=== PATIENT | male | born 1930 | race Caucasian/White ===

== ENCOUNTER 2016-11-26 21:42 | Emergency (ER) | payer MEDICARE, BC ==
[2016-11-26 22:12] VITALS: BP 122/65
--- NOTE | 2016-11-26 23:33 | ED ---
Lalito Francisco Rebecca, scribed for Ron Rubio MD on 11/26/16 at 2238 . GI/ HPI - HPI Summary HPI Summary: Pt is an 86 y/o M who presents to ED c/o his catheter not draining. Pt had the laura put in place 4 weeks ago, which has been working well until the current issue. His laura suddenly stopped draining today at 1700 and has begun leaking from the top of the tube. Sx aggravated and alleviated by nothing. Pt denies any other symptoms including any pain. - History of Current Complaint Chief Complaint: EDUrogenitalProblems Time Seen by Provider: 11/26/16 22:29 Stated Complaint: CATHETER CHANGED Hx Obtained From: Patient, Family/Nurse Specialist - Onset/Duration: Started Hours Ago, Still Present Timing: Constant Pain Intensity: 0 Associated Signs and Symptoms: Positive: Other: - Catheter stopped draining Aggravating Factor(s): Nothing Alleviating Factor(s): Nothing - Additional Pertinent History Primary Care Physician: [id number] - Allergy/Home Medications Allergies/Adverse Reactions: Allergies Allergy/AdvReac Type Severity Reaction Status Date / Time No Known Allergies Allergy Verified 10/11/16 10:29 PMH/Surg Hx/FS Hx/Imm Hx Endocrine/Hematology History: Denies: Hx Diabetes, Hx Unexplained Bleeding Cardiovascular History: Reports: Hx Coronary Artery Disease, Hx Hypercholesterolemia Denies: Hx Congestive Heart Failure, Hx Hypertension, Hx Pacemaker/ICD, Other Cardiovascular Problems/Disorders Respiratory History: Denies: Hx Chronic Obstructive Pulmonary Disease (COPD), Other Respiratory Problems/Disorders GI History: Reports: Hx Gall Bladder Disease, Hx Gastroesophageal Reflux Disease , Hx Hiatal Hernia Denies: Other GI Disorders History: Reports: Hx Kidney Stones - RIGHT URETERAL STENT 10/2013, Other Problems/Disorders - TURP, PROSTATE CA, HEMATURIA, BLADDER LESION Denies: Hx Dialysis, Hx Renal Disease Musculoskeletal History: Reports: Hx Orthopedic Injury - 01/05/14 RIGHT HIP FRACTURE/OUTPT TREATMENT Denies: Hx Back Problems Sensory History: Reports: Hx Cataracts, Hx Contacts or Glasses, Hx Vision Problem, Hx Hearing Aid, Hx Hearing Problem Opthamlomology History: Reports: Hx Cataracts, Hx Contacts or Glasses, Hx Vision Problem Neurological History: Denies: Hx Dementia, Hx Seizures, Other Neuro Impairments/Disorders Psychiatric History: Denies: Hx Panic Disorder - Cancer History Cancer Type, Location and Year: PROSTATE CANCER x ~7 years - Surgical History Surgery Procedure, Year, and Place: Appendectomy 1943, Cholecystectomy 2009. kidney stone removal. TURP WITH RIGHT URETERAL STENT 10/2013 @ [facility] [place]. CARDIAC STENTS, 2001(cypher drug-eluting stent). cardiac stents 08/2016 (synergy drug- eluting stents X3, conditional 1.5 &3, scan in normal mode) Hx Anesthesia Reactions: No Infectious Disease History: No Infectious Disease History: Denies: Hx Clostridium Difficile, Hx Hepatitis, Hx Human Immunodeficiency Virus (HIV), Hx of Known/Suspected MRSA, Traveled Outside the [place] in Last 30 Days - Family History Known Family History: Positive: Cardiac Disease, Hypertension - Social History Alcohol Use: Occasionally Alcohol Amount: 2-3 wine/week max Substance Use Type: Reports: None Smoking Status (MU): Former Smoker Type: Cigarettes Have You Smoked in the Last Year: No Review of Systems Positive: other - Catheter stopped draining Negative: Arthralgia All Other Systems Reviewed And Are Negative: Yes Physical Exam Triage Information Reviewed: Yes Vital Signs On Initial Exam: Initial Vitals Temp Pulse Resp BP Pulse Ox 97.9 F 86 16 122/65 100 11/26/16 22:05 11/26/16 22:05 11/26/16 22:05 11/26/16 22:05 11/26/16 22:05 Vital Signs Reviewed: Yes Appearance: Positive: Well-Appearing, No Pain Distress Skin: Positive: Warm, Skin Color Reflects Adequate Perfusion, Dry Eyes: Positive: EOMI, SELINA Neck: Positive: Supple, Nontender Respiratory/Lung Sounds: Positive: Clear to Auscultation, Breath Sounds Present Cardiovascular: Positive: RRR, Pulses are Symmetrical in both Upper and Lower Extremities Abdomen Description: Positive: Soft. Negative: Nontender - Tenderness in the suprapubic region Bowel Sounds: Positive: Present Musculoskeletal: Positive: Normal, Strength/ROM Intact Neurological: Positive: Normal, Sensory/Motor Intact, Alert, Oriented to Person Place, Time Psychiatric: Positive: Affect/Mood Appropriate Diagnostics - Vital Signs Vital Signs Temp Pulse Resp BP Pulse Ox 11/26/16 22:05 97.9 F 86 16 122/65 100 - Laboratory Lab Statement: Any lab studies that have been ordered have been reviewed, and results considered in the medical decision making process. GIGU Course/Dx - Course Assessment/Plan: LAURA REPLACED WITH A [address] [place]. WELL IN ED. DISCHARGE HOME STABLE. - Diagnoses Provider Diagnoses: Urinary catheter (Laura) change required Discharge - Discharge Plan Condition: Stable Disposition: HOME Patient Education Materials: Laura Catheter Placement and Care (ED) Referrals: [facility] [Provider Group] Bishnu Bonner MD [Primary Care Provider] - Additional Instructions: RETURN TO THE EMERGENCY DEPARTMENT FOR ANY WORSENING OF YOUR CONDITION OR QUESTIONS OR CONCERNS. The documentation as recorded by the Lalito chavez Rebecca accurately reflects the service I personally performed and the decisions made by me, Ron Rubio MD.
== END 2016-11-26 23:35 | disposition home or self-care (01) ==
LOC: ED 21:42
DX: Z46.6 Encounter for fitting and adjustment of urinary device (principal); Z87.891 Personal history of nicotine dependence
CPT/HCPCS: 99281

== ENCOUNTER 2016-12-11 10:44 | Emergency (ER) | payer MEDICARE, BC ==
[2016-12-11] MEDS ORDERED: Acetaminophen TAB* 325 MG PO ONE (12:24)
[2016-12-11] MEDS ORDERED: NS 0.9% 1000 ML* 1,000 ML IV SCH (12:30)
[2016-12-11 13:11] LABS: Hematocrit 26 % (42-52); Hemoglobin 8.2 g/dl (14.0-18.0); Mean Corpuscular HGB Conc 32 g/dl (31-36); Mean Corpuscular Hemoglobin 27 pg (27-31); Mean Corpuscular Volume 84 fL (80-94); Mean Platelet Volume 10 um3 (7.4-10.4); Red Blood Count 3.07 10^6/ul (4.0-5.4); Red Cell Distribution Width 21 % (10.5-15); White Blood Count 8.6 10^3/ul (3.5-10.8)
[2016-12-11 13:33] LABS: Albumin 3.4 g/dL (3.2-5.2); BUN/Creatinine Ratio 23.2 (8-20); C Reactive Protein 102.73 mg/L (< 5.00); Calcium 9.2 mg/dL (8.6-10.3); EGFR African American 114.8 (>60); EGFR Non-African American 89.3 (>60); Potassium 3.4 mmol/L (3.5-5.0); Total Bilirubin 1.2 mg/dL (0.2-1.0); Total Protein 6.4 g/dL (6.4-8.9)
--- NOTE | 2016-12-11 13:58 | RAD ---
INDICATION: Low back pain, metastatic prostate carcinoma. COMPARISON: Comparison is made with a prior CT of the abdomen and pelvis from October 16, 2016. TECHNIQUE: A CT scan of the abdomen and pelvis was performed without intravenous or oral contrast. Contiguous axial sections were obtained from the lung bases through the symphysis pubis. Images were reconstructed in the coronal and sagittal planes. FINDINGS: The lung bases are clear. No pleural effusion is present. The liver and spleen are normal in size without significant focal abnormality on this noncontrast study. The patient is status post cholecystectomy. The pancreas appears to be within normal limits. The kidneys and adrenal glands appear normal in size. There are small calcifications in the lower pole of the left kidney measuring 2 to 4 mm in size most consistent with nonobstructing renal calculi. No hydronephrosis is present. The abdominal aorta is ectatic with moderate to severe calcific plaque present. There are enlarged lymph nodes present in the right external iliac chain measuring up to 1.8 cm in transverse dimension which are unchanged from the prior study. The stomach, small and large bowel appear nondistended. The appendix is within normal limits. There is no evidence for colitis or diverticulitis. No free intraperitoneal air or fluid is seen. There are mixed sclerotic and lytic lesions present within the pubic symphysis on the left side and within the right inferior pubic ramus and right ischium. There are pathologic fractures of the right inferior pubic ramus and right ischium which are unchanged. There is also a lytic lesion in the posterior aspect of the right acetabulum. These findings appear grossly unchanged. IMPRESSION: 1. ENLARGED RIGHT EXTERNAL ILIAC CHAIN LYMPH NODES, UNCHANGED. 2. MULTIPLE LYTIC OSSEOUS PELVIC LESIONS CONSISTENT WITH METASTATIC DISEASE AND PATHOLOGIC FRACTURES OF THE RIGHT INFERIOR PUBIC RAMUS AND RIGHT ISCHIUM, UNCHANGED. 3. SMALL NONOBSTRUCTING LEFT RENAL CALCULI. 4. STATUS POST CHOLECYSTECTOMY.
--- NOTE | 2016-12-11 14:14 | RAD ---
INDICATION: Low back pain. COMPARISON: Comparison is made with a prior MRI of the lumbar spine from July 07, 2013. TECHNIQUE: Contiguous axial sections were obtained beginning above the T12 vertebra and continuing through the L5-S1 disc space. Images were reconstructed in the sagittal and coronal planes. FINDINGS: The vertebra are in normal alignment. There is a lytic lesion within the L5 vertebral body with an associated mild pathologic compression fracture of the superior endplate of the vertebral body. There is extension of tumor into the epidural space in the anterior spinal canal causing mild to moderate spinal canal narrowing. At the T12-L1 level there is posterior endplate spurring associated with a mild broad-based disc bulge and mild hypertrophic changes within the facet joints. There is mild spinal canal narrowing and mild bilateral neural foraminal narrowing. At the L1-L2 level there is posterior endplate spurring associated with a mild broad-based disc bulge and mild hypertrophic changes within the facet joints. There is mild spinal canal narrowing and moderate bilateral neural foraminal narrowing. At the L2-L3 level there is posterior endplate spurring associated with a mild broad-based disc bulge which causes mild to moderate spinal canal narrowing. There are mild hypertrophic changes within the facet joints and mild bilateral neural foraminal narrowing. At the L3-L4 level there is a mild broad-based disc bulge associated with posterior endplate spurring and moderate hypertrophic changes within the facet joints. These findings give rise to moderate spinal canal narrowing and mild to moderate bilateral neural foraminal narrowing. At the L4-L5 level the patient is status post left hemilaminectomy. There is posterior endplate spurring associated with a moderate broad-based disc bulge. There is moderate spinal canal narrowing and moderate bilateral neural foraminal narrowing. At the L5-S1 level there are [id number] endplate hypertrophic changes associated with a mild broad-based disc bulge and mild hypertrophic changes within the facet joints. There is mild spinal canal narrowing and moderate bilateral neural foraminal narrowing. IMPRESSION: 1. THERE IS A LYTIC LESION WITHIN THE L5 VERTEBRAL BODY WITH ASSOCIATED MILD PATHOLOGIC COMPRESSION FRACTURE OF THE SUPERIOR ENDPLATE. THERE IS EXTENSION OF TUMOR INTO THE EPIDURAL SPACE IN THE ANTERIOR SPINAL CANAL CAUSING MILD TO MODERATE SPINAL CANAL NARROWING. THIS COULD BE BETTER EVALUATED WITH AN MRI OF THE LUMBAR SPINE WITH CONTRAST. 2. MODERATE LUMBAR SPONDYLITIC CHANGES GIVING RISE TO MILD TO MODERATE SPINAL CANAL NARROWING AT MULTIPLE LEVELS.
[2016-12-11 15:26] LABS: Budding Yeast Present (Absent); Urine Bacteria Absent (Absent); Urine Bilirubin Negative (Negative); Urine Glucose Negative (Negative); Urine Nitrite Negative (Negative)
--- NOTE | 2016-12-11 16:03 | ED ---
Rashad Francisco Matthew, scribed for Ron Rubio MD on 12/11/16 at 1232 . Back Pain - HPI Summary HPI Summary: An 86 y/o male presents to the ED by EMS with sudden mid lumbar back pain since 12/07/15. The pain is rated 10/10 in severity, and the pain on one occasion radiated down the patient's right leg. The pain worsens with movement. The patient presented to the ED today, because he was unable to get out of bed this morning. He has a Hx of chronic back pain. He also has a Hx of pneumonia, where he was hospitalized from before till after . He also has bladder CA, which has become metastatic. He currently denies fever, LE weakness , and abdominal pain. 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 - History of Current Complaint Chief Complaint: EDBackInjuryPain Stated Complaint: BACK PAIN Time Seen by Provider: 12/11/16 12:13 Hx Obtained From: Patient, Family/Chaplain Resident - Onset/Duration: Sudden Onset, Lasting Days, Still Present Onset/Duration: Started Days Ago, Atraumatic, Still Present Timing: Constant Back Pain Location: Is Discrete @ - mid lumbar spine Severity Initially: Moderate Severity Currently: Moderate Aggravating Symptom(s): Movement Alleviating Symptom(s): Nothing Associated Signs And Symptoms: Positive: Negative. Negative: Weakness, Numbness , Tingling, Abdominal Pain - Allergies/Home Medications Allergies/Adverse Reactions: Allergies Allergy/AdvReac Type Severity Reaction Status Date / Time No Known Allergies Allergy Verified 10/11/16 10:29 Home Medications: Home Medications Amoxicillin/Clavulanate TAB* [Augmentin TAB 500 mg*] 500 mg PO TID 12/11/16 [ History Confirmed 12/11/16] Potassium Chlor TAB* [Potassium Chlor TAB 20 MEQ*] 20 meq PO DAILY 12/11/16 [ History Confirmed 12/11/16] Ramipril CAP* [Altace CAP*] 10 mg PO DAILY 12/11/16 [History Confirmed 12/11/16] predniSONE TAB* [Deltasone TAB*] 5 mg PO BID 12/11/16 [History Confirmed ] PMH/Surg Hx/FS Hx/Imm Hx Endocrine/Hematology History: Denies: Hx Diabetes, Hx Unexplained Bleeding Cardiovascular History: Reports: Hx Coronary Artery Disease, Hx Hypercholesterolemia Denies: Hx Congestive Heart Failure, Hx Hypertension, Hx Pacemaker/ICD, Other Cardiovascular Problems/Disorders Respiratory History: Denies: Hx Chronic Obstructive Pulmonary Disease (COPD), Other Respiratory Problems/Disorders GI History: Reports: Hx Gall Bladder Disease, Hx Gastroesophageal Reflux Disease , Hx Hiatal Hernia Denies: Other GI Disorders History: Reports: Hx Kidney Stones - RIGHT URETERAL STENT 10/2013, Other Problems/Disorders - TURP, PROSTATE CA, HEMATURIA, BLADDER LESION Denies: Hx Dialysis, Hx Renal Disease Musculoskeletal History: Reports: Hx Orthopedic Injury - 01/05/14 RIGHT HIP FRACTURE/OUTPT TREATMENT Denies: Hx Back Problems Sensory History: Reports: Hx Cataracts, Hx Contacts or Glasses, Hx Vision Problem, Hx Hearing Aid, Hx Hearing Problem Opthamlomology History: Reports: Hx Cataracts, Hx Contacts or Glasses, Hx Vision Problem Neurological History: Denies: Hx Dementia, Hx Seizures, Other Neuro Impairments/Disorders Psychiatric History: Denies: Hx Panic Disorder - Cancer History Cancer Type, Location and Year: PROSTATE CANCER x ~7 years - Surgical History Surgery Procedure, Year, and Place: Appendectomy 194, Cholecystectomy 2009. kidney stone removal. TURP WITH RIGHT URETERAL STENT 10/2013 @ [facility] – [place]. CARDIAC STENTS, 2001(cypher drug-eluting stent). cardiac stents 08/2016 (synergy drug- eluting stents X3, conditional 1.5 &3, scan in normal mode) Hx Anesthesia Reactions: No Infectious Disease History: No Infectious Disease History: Denies: Hx Clostridium Difficile, Hx Hepatitis, Hx Human Immunodeficiency Virus (HIV), Hx of Known/Suspected MRSA, Traveled Outside the [place] in Last 30 Days - Family History Known Family History: Positive: Cardiac Disease, Hypertension - Social History Alcohol Use: Occasionally Alcohol Amount: 2-3 wine/week max Substance Use Type: Reports: None Smoking Status (MU): Former Smoker Type: Cigarettes Have You Smoked in the Last Year: No Review of Systems Constitutional: Negative Eyes: Negative ENT: Negative Cardiovascular: Negative Respiratory: Negative Gastrointestinal: Negative Genitourinary: Negative Positive: Myalgia - mid lumbar back pain Skin: Negative Neurological: Negative Psychological: Normal All Other Systems Reviewed And Are Negative: Yes Physical Exam Triage Information Reviewed: Yes Vital Signs On Initial Exam: Initial Vitals Temp Pulse Resp BP Pulse Ox 97.8 F 75 16 135/64 98 12/11/16 11:00 12/11/16 11:00 12/11/16 11:00 12/11/16 11:00 12/11/16 11:00 Vital Signs Reviewed: Yes Appearance: Positive: No Pain Distress Skin: Positive: Warm, Skin Color Reflects Adequate Perfusion, Dry Head/Face: Positive: Normal Head/Face Inspection Eyes: Positive: EOMI, SELINA ENT: Positive: Normal ENT inspection Neck: Positive: Supple, Nontender Cardiovascular: Positive: RRR Abdomen Description: Positive: Nontender, Soft Bowel Sounds: Positive: Present Musculoskeletal: Positive: Strength/ROM Intact, Other - mid lumbar spinal tenderness Neurological: Positive: Sensory/Motor Intact, Alert, Oriented to Person Place, Time Psychiatric: Positive: Normal, Affect/Mood Appropriate Diagnostics - Vital Signs Vital Signs Temp Pulse Resp BP Pulse Ox 12/11/16 12:00 79 128/59 99 12/11/16 11:35 74 100 12/11/16 11:00 97.8 F 75 16 135/64 98 - Laboratory Lab Results: Lab Results 12/11/16 12/11/16 12/11/16 Range/Units 13:00 13:00 13:00 WBC 8.6 (3.5-10.8) 10^3/ul RBC 3.07 L (4.0-5.4) 10^6/ul Hgb 8.2 L (14.0-18.0) g/dl Hct 26 L (42-52) % MCV 84 (80-94) fL MCH 27 (27-31) pg MCHC 32 (31-36) g/dl RDW 21 H (10.5-15) % Plt Count 225 (150-450) 10^3/ul MPV 10 (7.4-10.4) um3 Neut % (Auto) 84.2 H (38-83) % Lymph % (Auto) 7.0 L (25-47) % Bingham % (Auto) 7.6 (1-9) % Eos % (Auto) 0.8 (0-6) % Baso % (Auto) 0.4 (0-2) % Absolute Neuts (auto) 7.2 (1.5-7.7) 10^3/ul Absolute Lymphs (auto) 0.6 L (1.0-4.8) 10^3/ul Absolute Monos (auto) 0.6 (0-0.8) 10^3/ul Absolute Eos (auto) 0.1 (0-0.6) 10^3/ul Absolute Basos (auto) 0 (0-0.2) 10^3/ul Absolute Nucleated RBC 0 10^3/ul Nucleated RBC % 0 INR (Anticoag Therapy) 1.17 H (0.89-1.11) APTT 30.5 (26.0-36.3) seconds Sodium 135 (133-145) mmol/L Potassium 3.4 L (3.5-5.0) mmol/L Chloride 103 (101-111) mmol/L Carbon Dioxide 22 (22-32) mmol/L Anion Gap 10 (2-11) mmol/L BUN 19 (6-24) mg/dL Creatinine 0.82 (0.67-1.17) mg/dL Est GFR ( Amer) 114.8 (>60) Est GFR (Non-Af Amer) 89.3 (>60) BUN/Creatinine Ratio 23.2 H (8-20) Glucose 92 (70-100) mg/dL Lactic Acid (0.5-2.0) mmol/L Calcium 9.2 (8.6-10.3) mg/dL Total Bilirubin 1.20 H (0.2-1.0) mg/dL AST 19 (13-39) U/L ALT 14 (7-52) U/L Alkaline Phosphatase 112 H (34-104) U/L C-Reactive Protein 102.73 H (< 5.00) mg/L Total Protein 6.4 (6.4-8.9) g/dL Albumin 3.4 (3.2-5.2) g/dL Globulin 3.0 (2-4) g/dL Albumin/Globulin Ratio 1.1 (1-3) Lipase 12 (11.0-82.0) U/L Urine Color Urine Appearance Urine pH (5-9) Ur Specific Carroll (1.010-1.030) Urine Protein (Negative) Urine Ketones (Negative) Urine Blood (Negative) Urine Nitrate (Negative) Urine Bilirubin (Negative) Urine Urobilinogen (Negative) Ur Leukocyte Esterase (Negative) Urine WBC (Auto) (Absent) Urine RBC (Auto) (Absent) Ur Squamous Epith Cells (Absent) Urine Bacteria (Absent) Urine Yeast (Absent) Urine Glucose (Negative) 12/11/16 12/11/16 Range/Units 13:00 15:07 WBC (3.5-10.8) 10^3/ul RBC (4.0-5.4) 10^6/ul Hgb (14.0-18.0) g/dl Hct (42-52) % MCV (80-94) fL MCH (27-31) pg MCHC (31-36) g/dl RDW (10.5-15) % Plt Count (150-450) 10^3/ul MPV (7.4-10.4) um3 Neut % (Auto) (38-83) % Lymph % (Auto) (25-47) % Bingham % (Auto) (1-9) % Eos % (Auto) (0-6) % Baso % (Auto) (0-2) % Absolute Neuts (auto) (1.5-7.7) 10^3/ul Absolute Lymphs (auto) (1.0-4.8) 10^3/ul Absolute Monos (auto) (0-0.8) 10^3/ul Absolute Eos (auto) (0-0.6) 10^3/ul Absolute Basos (auto) (0-0.2) 10^3/ul Absolute Nucleated RBC 10^3/ul Nucleated RBC % INR (Anticoag Therapy) (0.89-1.11) APTT (26.0-36.3) seconds Sodium (133-145) mmol/L Potassium (3.5-5.0) mmol/L Chloride (101-111) mmol/L Carbon Dioxide (22-32) mmol/L Anion Gap (2-11) mmol/L BUN (6-24) mg/dL Creatinine (0.67-1.17) mg/dL Est GFR ( Amer) (>60) Est GFR (Non-Af Amer) (>60) BUN/Creatinine Ratio (8-20) Glucose (70-100) mg/dL Lactic Acid 1.3 (0.5-2.0) mmol/L Calcium (8.6-10.3) mg/dL Total Bilirubin (0.2-1.0) mg/dL AST (13-39) U/L ALT (7-52) U/L Alkaline Phosphatase (34-104) U/L C-Reactive Protein (< 5.00) mg/L Total Protein (6.4-8.9) g/dL Albumin (3.2-5.2) g/dL Globulin (2-4) g/dL Albumin/Globulin Ratio (1-3) Lipase (11.0-82.0) U/L Urine Color Yellow Urine Appearance Cloudy Urine pH 6.0 (5-9) Ur Specific Carroll 1.012 (1.010-1.030) Urine Protein Negative (Negative) Urine Ketones 1+ H (Negative) Urine Blood Negative (Negative) Urine Nitrate Negative (Negative) Urine Bilirubin Negative (Negative) Urine Urobilinogen Negative (Negative) Ur Leukocyte Esterase Trace H (Negative) Urine WBC (Auto) 2+(11-20/hpf) H (Absent) Urine RBC (Auto) 3+(>10/hpf) H (Absent) Ur Squamous Epith Cells Present H (Absent) Urine Bacteria Absent (Absent) Urine Yeast Present H (Absent) Urine Glucose Negative (Negative) Result Diagrams: 12/11/16 13:00 12/11/16 13:00 Lab Statement: Any lab studies that have been ordered have been reviewed, and results considered in the medical decision making process. - CT A/P CT Interpretation: Positive (See Comments) - IMPRESSION: 1. ENLARGED RIGHT EXTERNAL ILIAC CHAIN LYMPH NODES, UNCHANGED. 2. MULTIPLE LYTIC OSSEOUS PELVIC LESIONS CONSISTENT WITH METASTATIC DISEASE AND PATHOLOGIC FRACTURES OF THE RIGHT INFERIOR PUBIC RAMUS AND RIGHT ISCHIUM, UNCHANGED. 3. SMALL NONOBSTRUCTING LEFT RENAL CALCULI. 4. STATUS POST CHOLECYSTECTOMY. CT Interpretation Completed By: Radiologist Lumbar CT CT Interpretation: Positive (See Comments) - IMPRESSION: 1. THERE IS A LYTIC LESION WITHIN THE L5 VERTEBRAL BODY WITH ASSOCIATED MILD PATHOLOGIC COMPRESSION FRACTURE OF THE SUPERIOR ENDPLATE. THERE IS EXTENSION OF TUMOR INTO THE EPIDURAL SPACE IN THE ANTERIOR SPINAL CANAL CAUSING MILD TO MODERATE SPINAL CANAL NARROWING. THIS COULD BE BETTER EVALUATED WITH AN MRI OF THE LUMBAR SPINE WITH CONTRAST. 2. MODERATE LUMBAR SPONDYLITIC CHANGES GIVING RISE TO MILD TO MODERATE SPINAL CANAL NARROWING AT MULTIPLE LEVELS. CT Interpretation Completed By: Radiologist Back Pain Course/Dx - Course Assessment/Plan: DISCUSSED WITH DR CHARLES. DISCUSSED RESULTS WITH PATIENT/ . AMBULATED IN ED. DISCHARGE HOME STABLE. F/U TOMORROW WITH DR MILAN. - Diagnoses Provider Diagnoses: Low back pain, Lumbar compression fracture, Prostate cancer metastatic to bone - Provider Notifications Discussed Care of Patient With: Dr. Charles (Oncology) at 15:52 -- Notified of patient's history and will admit the patinet. Discharge - Discharge Plan Condition: Stable Disposition: HOME Patient Education Materials: Acute Low Back Pain (ED), Vertebral Compression Fracture (ED) Referrals: Bishnu Bonner MD [Primary Care Provider] - Additional Instructions: FOLLOW UP WITH DR MILAN TOMORROW, 12/12/16 SCHEDULED. TAKE TYLENOL DIRECTED FOR PAIN. RETURN TO THE EMERGENCY DEPARTMENT FOR ANY WORSENING OF YOUR CONDITION; PAIN, WEAKNESS, NUMBNESS, DIFFICULTY CONTROLLING YOUR BOWEL OR BLADDER OR QUESTIONS OR CONCERNS. The documentation as recorded by the Rashad chavez Matthew accurately reflects the service I personally performed and the decisions made by me, Ron Rubio MD.
[2016-12-11 16:35] VITALS: BP 119/71
--- NOTE | 2016-12-16 18:56 | PN ---
Progress Note - Progress Note Note: patient called. fluconozole 150 qd for 2 days sent to pharmacy patient to case picker tomorrow. nothing further
== END 2016-12-11 16:34 | disposition home or self-care (01) ==
LOC: ED 10:44
DX: M54.5 Low back pain (principal); M48.56XA Collapsed vertebra, not elsewhere classified, lumbar region, initial encounter for fracture; C67.9 Malignant neoplasm of bladder, unspecified; C79.51 Secondary malignant neoplasm of bone; I25.10 Atherosclerotic heart disease of native coronary artery without angina pectoris; E78.00 Pure hypercholesterolemia, unspecified; N20.0 Calculus of kidney; Z79.899 Other long term (current) drug therapy
CPT/HCPCS: 36415; 72131; 74176; 80053; 81003; 81015; 83605; 83690; 85025; 85610; 85730; 86140; 87086; 87106; 96360; 99282; A9270-GY

== ENCOUNTER 2016-12-22 12:31 | Emergency (ER) | payer MEDICARE, BC ==
[2016-12-22 12:44] VITALS: BP 97/49
[2016-12-22] MEDS ORDERED: NS 0.9% 1000 ML* 1,000 ML IV ONE (13:00)
[2016-12-22] MEDS ORDERED: Aspirin Low Dose CHEW TAB* 81 MG PO ONE (13:00)
--- NOTE | 2016-12-22 13:46 | UC ---
Syncope/New Syncope HPI - HPI Summary HPI Summary: PT WAS TRANSFERED TO URGENT CARE FROM THE MRI. WHILE UNDER GOING THE STUDY PT FELT A LITTLE OFF. WHEN HE EMERGED FROM THE MRI, HE WAS FOUND TO BE PALE. HE EYES ROLLED BACK AND HE LOST CONSCIOUSNESS. HE WAS FOUND TO HAVE IRREGULAR RHYTHM AND BRADYCARDIA HE ALSO EXPERIENCED N/V. AT TIME OF ENCOUNTER, PT DENIES , CP, SOB, DIZZINESS, CONFUSION, NAUSEA, DE DIOS, ABD PAIN, LEFT NECK/JAW/ARM PAIN. 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 Negative: Chest Pain, Diarrhea, Diaphoresis, Headache, Numbness, Pain, Shortness Of Breath - Allergies/Home Medications Allergies/Adverse Reactions: Allergies Allergy/AdvReac Type Severity Reaction Status Date / Time No Known Allergies Allergy Verified 12/22/16 12:51 PMH/Surg Hx/FS Hx/Imm Hx Endocrine History Of: Denies: Diabetes Cardiovascular History Of: Reports: Cardiac Disorders - CAD, x5 stents Denies: Hypertension, Pacemaker/ICD, Congestive Heart Failure Respiratory History Of: Denies: COPD GI/ History Of: Reports: Gall Bladder Disease, Kidney Stones - RIGHT URETERAL STENT 10/2013, Renal Disease Neurological History Of: Denies: Dementia, Seizures - Surgical History Surgical History: Yes Surgery Procedure, Year, and Place: Appendectomy 194, Cholecystectomy 2009. kidney stone removal. TURP WITH RIGHT URETERAL STENT 10/2013 @ [facility] [place]. CARDIAC STENTS, 2001(cypher drug-eluting stent). cardiac stents 08/2016 (synergy drug- eluting stents X3, conditional 1.5 &3, scan in normal mode) - Family History Known Family History: Positive: Cardiac Disease, Hypertension - Social History Occupation: Retired Lives: With Family Alcohol Use: Occasionally Alcohol Amount: 2-3 wine/week max Substance Use Type: None Smoking Status (MU): Former Smoker Type: Cigarettes Have You Smoked in the Last Year: No When Did the Patient Quit Smoking/Using Tobacco: 2003 - Immunization History Most Recent Influenza Vaccination: august 2016 Most Recent Tetanus Shot: "LONG TIME AGO" Most Recent Pneumonia Vaccination: HAD, UNSURE YEAR Review of Systems Constitutional: Negative Skin: Negative Eyes: Negative ENT: Negative Respiratory: Negative Cardiovascular: Negative Gastrointestinal: Vomiting Genitourinary: Negative Motor: Negative Neurovascular: Negative Musculoskeletal: Other: - BACK PAIN CHRONIC, METASTATIC Neurological: Other - SIZZINESS, SYNCOPE Psychological: Negative All Other Systems Reviewed And Are Negative: Yes Physical Exam Triage Information Reviewed: Yes Appearance: No Pain Distress, Ill-Appearing - MILD, Thin Vital Signs: Initial Vital Signs Temp 96.8 F 12/22/16 12:41 Pulse 41 12/22/16 12:41 Resp 16 12/22/16 12:41 BP 97/49 12/22/16 12:41 Pulse Ox 100 12/22/16 12:41 Vital Signs Reviewed: Yes Eyes: Positive: Conjunctiva Clear. Negative: Discharge ENT: Negative: Hearing grossly normal - [place], Muffled/hoarse voice Neck exam: Normal Neck: Positive: Supple Respiratory: Positive: Lungs clear, Normal breath sounds, No respiratory distress, No accessory muscle use Cardiovascular: Positive: Bradycardia. Negative: RRR - IRREGULAR Abdomen Description: Positive: Nontender, Soft. Negative: Distended, Guarding Bowel Sounds: Positive: Present Musculoskeletal Exam: Normal Neurological: Positive: Alert, Muscle Tone Normal Psychological: Positive: Age Appropriate Behavior Skin: Positive: Other - PALE, DRY Syncope Course/Dx - Course Course Of Treatment: EKG - SINUS, HR80, BIGEMINY(CHANGE FROM PRIOR STUDY ) - Differential Dx/Diagnosis Provider Diagnoses: SYNCOPE Discharge - Discharge Plan Condition: Stable Disposition: [facility] Referrals: Bishnu Bonner MD [Primary Care Provider] -
== END 2016-12-22 13:20 | disposition short-term general hospital (02) ==
LOC: UCCORT 12:31
DX: R55 Syncope and collapse (principal); Z98.61 Coronary angioplasty status; Z87.891 Personal history of nicotine dependence; M51.36 Other intervertebral disc degeneration, lumbar region; M47.896 Other spondylosis, lumbar region; M48.06 Spinal stenosis, lumbar region; M53.86 Other specified dorsopathies, lumbar region; C61 Malignant neoplasm of prostate; R26.89 Other abnormalities of gait and mobility
CPT/HCPCS: 72158; 93005; 99213; A9270-GY; A9579; G0463